=== PATIENT | female | born 1975 | race Caucasian/White ===

== ENCOUNTER 2019-07-10 14:51 | Emergency (ER) | payer OTHER ==
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
--- NOTE | 2019-07-10 15:56 | RADIOLOGY REPORT (SQ) ---
EXAM DESCRIPTION: WRIST LEFT 3 VIEWS COMPLETED DATE/TIME: 07/10/2019 3:47 pm REASON FOR STUDY: trauma COMPARISON: None. NUMBER OF VIEWS: Three views. TECHNIQUE: AP, lateral, oblique, and scaphoid radiographic images acquired of the left wrist. LIMITATIONS: None. FINDINGS: MINERALIZATION: Normal. BONES: No acute fracture or dislocation. No worrisome bone lesions. Normal alignment. SOFT TISSUES: No soft tissue swelling. No foreign body. OTHER: No other significant finding. IMPRESSION: No evidence of acute bony abnormality. If high clinical concern for occult scaphoid fracture MRI or short-term follow-up radiographs could b e considered. TECHNICAL DOCUMENTATION: JOB ID: [id number] [employer]- All Rights Reserved Reading location - IP/workstation name: [email or web address]
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
[2019-07-10 16:43] VITALS: BP 116/59
== END 2019-07-10 17:04 | disposition home or self-care (01) ==
LOC: ER 14:51
DX: S60.212A Contusion of left wrist, initial encounter (principal); S90.02XA Contusion of left ankle, initial encounter; S90.512A Abrasion, left ankle, initial encounter; S60.512A Abrasion of left hand, initial encounter; R07.81 Pleurodynia; R07.1 Chest pain on breathing; R07.89 Other chest pain; V28.5XXA Motorcycle passenger injured in noncollision transport accident in traffic accident, initial encounter; R21 Rash and other nonspecific skin eruption; Z88.3 Allergy status to other anti-infective agents
CPT/HCPCS: 99283